=== PATIENT | male | born 1930 | race Caucasian/White ===

== ENCOUNTER 2016-09-27 04:26 | Inpatient (IN) | payer OTHER ==
[~2016-09-27] VITALS: Ht 182.9 cm; Wt 95.8 kg
[~2016-09-27 04:26] MED LIST: ACYCLOVIR800 MG PO; AMLODIPINE-BEN1 EACH PO; ANALGESIC325 M1 PO; ASPIR 8181 M1 PO; CILOSTAZOL100 MG PO; LIPITOR40 MG PO; LOTREL 10/21 CAPSULE PO; NITROSTAT,NITR0.4 M1 SL; PERCOCET 5/31 TABLET PO; PLAVIX75 MG PO; PLETAL100 M1 PO; RESUME HOME MEDS; VALIUM5 MG PO
[2016-09-27 05:02] LABS: BASOPHIL COUNT 0.1 K/uL (0-0.1); EOSINOPHIL (%) 0.8 % (0-5); EOSINOPHIL COUNT 0.1 K/uL (0-0.3); HEMATOCRIT 44.2 % (38.0-50.0); IMMATURE GRANULOCYTE (%) 0.3 % (0.0-0.7); INSTRUMENT ABS NEUTROPHIL CT 8.3 K/uL; LYMPHOCYTE COUNT 1.1 K/uL (1.0-2.8); MCH 25.7 PG (29.0-34.0); MCHC 31.4 G/DL (30.0-36.0); MCV 81.7 FL (86-99); MEAN PLAT.VOLUME 10.7 uM^3 (9.0-12.4); MONOCYTE (%) 4.7 % (3-12); MONOCYTE COUNT 0.5 K/uL (0-0.8); NEUTROPHIL (%) 82.4 % (45-76); NEUTROPHIL COUNT 8.3 K/uL (1.8-6.4); PLATELET COUNT 292 K/uL (156-360); RBC DIS.WIDTH-CV 15.5 % (11.8-14.6); RED BLOOD COUNT 5.41 M/uL (4.00-5.50)
[2016-09-27 05:18] LABS: CHLORIDE 103 mEq/L (99-109); POTASSIUM 4.2 mEq/L (3.7-5.4); SODIUM 140 mEq/L (136-147)
[2016-09-27 05:21] LABS: GLUCOSE 170 mg/dL (70-99)
[2016-09-27 05:22] LABS: ANION GAP 10 MEQ/L (2-14)
[2016-09-27 05:23] LABS: TOTAL BILIRUBIN 0.5 mg/dL (0.0-1.0)
[2016-09-27 05:24] LABS: ALKALINE PHOSPHATASE 106 IU/L (3-129); GFR ESTIMATE (CALCULATED) > 59 mL/min/; TROP-I INTERPRETATION NEGATIVE; TROPONIN-I < 0.01 ng/mL (0.0-0.30)
[2016-09-27 05:26] LABS: UREA NITROGEN (BUN) 16 mg/dL (9-23)
[2016-09-27 05:28] LABS: LIPASE 36 U/L (1.0-51.0)
[2016-09-27 09:30] LABS: ADD MIUA? NO; BILIRUBIN NEGATIVE; BLOOD NEGATIVE; COLOR STRAW ((YELLOW)); GLUCOSE (STRIP) NEGATIVE; KETONES NEGATIVE; LEUKOCYTES NEGATIVE; NITRITE NEGATIVE; PROTEIN (STRIP) NEGATIVE; SPECIFIC GRAVITY 1.027 (1.000-1.030); UCUL ADDED? NO; UROBILINOGEN 0.2 MG/DL (0.2-1.0)
[2016-09-27] MEDS ORDERED: AMLODIPINE BESY10 MG PO (11:30)
[2016-09-27] MEDS ORDERED: XARELTO20 MG PO (11:31)
[2016-09-27] MEDS ORDERED: ZESTRIL20 MG PO (11:33)
[2016-09-27 14:05] VITALS: BP 151/93
[2016-09-27 23:23] VITALS: BP 127/76
[2016-09-28 04:29] VITALS: BP 117/77
[2016-09-28 07:12] LABS: BASOPHIL COUNT 0.1 K/uL (0-0.1); EOSINOPHIL (%) 0.4 % (0-5); HEMATOCRIT 40.9 % (38.0-50.0); IMMATURE GRANULOCYTE (%) 0.4 % (0.0-0.7); INSTRUMENT ABS NEUTROPHIL CT 8.7 K/uL; LYMPHOCYTE COUNT 1.4 K/uL (1.0-2.8); MCH 25.8 PG (29.0-34.0); MCHC 31.3 G/DL (30.0-36.0); MCV 82.5 FL (86-99); MEAN PLAT.VOLUME 10.8 uM^3 (9.0-12.4); MONOCYTE (%) 6.8 % (3-12); MONOCYTE COUNT 0.7 K/uL (0-0.8); NEUTROPHIL COUNT 8.7 K/uL (1.8-6.4); PLATELET COUNT 271 K/uL (156-360); RBC DIS.WIDTH-CV 15.9 % (11.8-14.6); RBC DIS.WIDTH-SD 47.6 % (39-53); RED BLOOD COUNT 4.96 M/uL (4.00-5.50)
[2016-09-28 07:39] LABS: ANION GAP 6 MEQ/L (2-14); CHLORIDE 106 MEQ/L (99-109); GFR ESTIMATE (CALCULATED) > 59 mL/min/; SAMPLE HEMOLYSIS CHECK 1; SAMPLE ICTERIC CHECK 0; SAMPLE LIPEMIA CHECK 0; SODIUM 141 MEQ/L (136-147); UREA NITROGEN (BUN) 14 mg/dL (9-23)
[2016-09-28 07:40] LABS: GLUCOSE 109 mg/dL (70-99); POTASSIUM 4.2 MEQ/L (3.7-5.4)
[2016-09-28 08:31] VITALS: BP 122/74
[2016-09-28 16:20] VITALS: BP 117/77
[2016-09-28 19:39] VITALS: BP 125/67
[2016-09-28 23:00] VITALS: BP 111/70
[2016-09-29 03:11] VITALS: BP 118/71
[2016-09-29 06:54] VITALS: BP 109/66
[2016-09-29 07:02] LABS: BASOPHIL COUNT 0.1 K/uL (0-0.1); EOSINOPHIL (%) 1.3 % (0-5); EOSINOPHIL COUNT 0.1 K/uL (0-0.3); HEMATOCRIT 36.4 % (38.0-50.0); IMMATURE GRANULOCYTE (%) 0.3 % (0.0-0.7); INSTRUMENT ABS NEUTROPHIL CT 5.9 K/uL; LYMPHOCYTE COUNT 1.3 K/uL (1.0-2.8); MCH 25.6 PG (29.0-34.0); MCV 82.5 FL (86-99); MEAN PLAT.VOLUME 11.2 uM^3 (9.0-12.4); MONOCYTE (%) 8.2 % (3-12); MONOCYTE COUNT 0.7 K/uL (0-0.8); NEUTROPHIL (%) 73.3 % (45-76); NEUTROPHIL COUNT 5.9 K/uL (1.8-6.4); PLATELET COUNT 221 K/uL (156-360); RBC DIS.WIDTH-CV 15.9 % (11.8-14.6); RBC DIS.WIDTH-SD 48.1 % (39-53); RED BLOOD COUNT 4.41 M/uL (4.00-5.50)
[2016-09-29 15:42] VITALS: BP 119/72
[2016-09-29 19:03] VITALS: BP 138/81
[2016-09-29 23:00] VITALS: BP 134/81
[2016-09-30 03:56] VITALS: BP 119/57
[2016-09-30 07:10] VITALS: BP 110/69
== END 2016-09-30 14:41 | disposition home or self-care (01) | DRG 390 ==
LOC: EME 04:26 → 5EAST 07:50 → EME 07:50 → EDOF 07:50 → 5EAST 15:00
PROVIDERS: Emergency Medicine; Physician Assistant Surgical
DX: K56.5 Intestinal adhesions [bands] with obstruction (postinfection) (principal); I10 Essential (primary) hypertension; I25.10 Atherosclerotic heart disease of native coronary artery without angina pectoris; E78.5 Hyperlipidemia, unspecified; I73.9 Peripheral vascular disease, unspecified; Z95.5 Presence of coronary angioplasty implant and graft; Z95.828 Presence of other vascular implants and grafts; Z86.718 Personal history of other venous thrombosis and embolism; Z87.891 Personal history of nicotine dependence; Z79.82 Long term (current) use of aspirin; Z79.02 Long term (current) use of antithrombotics/antiplatelets
CPT/HCPCS: 71010; 74020; 74177; 80048; 80053; 81003; 83605; 83690; 84484; 85025; 93005; 99281; 99285; J1650; J2405; J3010; J7030; J7120

== ENCOUNTER 2018-02-02 17:04 | Emergency (ER) | payer OTHER ==
[~2018-02-02] VITALS: Ht 182.9 cm; Wt 97.1 kg
[~2018-02-02 17:04] MED LIST changes: +AMLODIPINE BESY10 MG PO; +XARELTO20 MG PO; +ZESTRIL20 MG PO
[2018-02-02 17:58] LABS: APPEARANCE CLEAR ((CLEAR)); BILIRUBIN NEGATIVE; BLOOD NEGATIVE; COLOR YELLOW ((YELLOW)); GLUCOSE (STRIP) NEGATIVE; KETONES NEGATIVE; LEUKOCYTES NEGATIVE; NITRITE NEGATIVE; PROTEIN (STRIP) NEGATIVE; SPECIFIC GRAVITY 1.013 (1.000-1.030); UCUL ADDED? NO; UROBILINOGEN 0.2 MG/DL (0.2-1.0)
[2018-02-02 18:04] LABS: HEMOGLOBIN 14.6 G/DL (12.5-16.6); MCH 31.4 PG (29.0-34.0); MCHC 34.8 G/DL (30.0-36.0); MCV 90.3 FL (86-99); PLATELET COUNT 235 K/uL (156-360); RBC DIS.WIDTH-CV 13.4 % (11.8-14.6); RED BLOOD COUNT 4.65 M/uL (4.00-5.50); WHITE BLOOD COUNT 12.4 K/uL (4.1-10.2)
[2018-02-02 18:17] LABS: CHLORIDE 106 mEq/L (99-109); SODIUM 140 mEq/L (136-147)
[2018-02-02 18:19] LABS: GLUCOSE 111 mg/dL (70-99); TOTAL PROTEIN 6.8 g/dL (6.4-8.3)
[2018-02-02 18:21] LABS: TOTAL BILIRUBIN 1.1 mg/dL (0.0-1.0)
[2018-02-02 18:22] LABS: ALKALINE PHOSPHATASE 95 IU/L (3-129)
[2018-02-02 18:23] LABS: GFR ESTIMATE (CALCULATED) > 59 mL/min/ (58.99-99999)
[2018-02-02 18:24] LABS: AST (GOT) 22 IU/L (2-34); UREA NITROGEN (BUN) 17 mg/dL (9-23)
[2018-02-02 18:25] LABS: ALT (GPT) 13 IU/L (3-49)
[2018-02-02 18:26] LABS: LIPASE 24 U/L (1.0-51.0)
[2018-02-02 23:05] LABS: TROP-I INTERPRETATION NEGATIVE; TROPONIN-I < 0.01 ng/mL (0.0-0.30)
[2018-02-02] MEDS ORDERED: CIPRO500 MG PO (23:22)
[2018-02-02] MEDS ORDERED: FLAGYL500 MG PO (23:22)
[2018-02-03 00:02] VITALS: BP 137/74
== END 2018-02-03 00:03 | disposition home or self-care (01) ==
LOC: EME 17:04
PROVIDERS: Emergency Medicine
PROC: 0T9B70Z Drainage of Bladder with Drainage Device, Via Natural or Artificial Opening (ICD-10-PCS; principal; 2018-02-02)
DX: K62.89 Other specified diseases of anus and rectum (principal); K56.41 Fecal impaction; R33.9 Retention of urine, unspecified; N28.1 Cyst of kidney, acquired; I10 Essential (primary) hypertension; E78.5 Hyperlipidemia, unspecified; Z95.5 Presence of coronary angioplasty implant and graft; Z86.718 Personal history of other venous thrombosis and embolism; Z79.01 Long term (current) use of anticoagulants; Z79.82 Long term (current) use of aspirin; Z87.891 Personal history of nicotine dependence
CPT/HCPCS: 74177; 80053; 81003; 83690; 84484; 85027; J7040

== ENCOUNTER 2018-02-04 12:57 | Emergency (ER) | payer OTHER ==
[~2018-02-04] VITALS: Ht 182.9 cm; Wt 95.8 kg
[~2018-02-04 12:57] MED LIST changes: +CIPRO500 MG PO; +FLAGYL500 MG PO
[2018-02-04 14:19] LABS: BASOPHIL COUNT 0.1 K/uL (0-0.1); EOSINOPHIL (%) 1.2 % (0-5); EOSINOPHIL COUNT 0.1 K/uL (0-0.3); HEMATOCRIT 45.1 % (38.0-50.0); HEMOGLOBIN 14.8 G/DL (12.5-16.6); IMMATURE GRANULOCYTE (%) 0.3 % (0.0-0.7); LYMPHOCYTE (%) 13.9 % (15-42); LYMPHOCYTE COUNT 1.3 K/uL (1.0-2.8); MCH 30.5 PG (29.0-34.0); MCHC 32.8 G/DL (30.0-36.0); MCV 92.8 FL (86-99); MONOCYTE (%) 9.6 % (3-12); MONOCYTE COUNT 0.9 K/uL (0-0.8); NEUTROPHIL COUNT 6.7 K/uL (1.8-6.4); PLATELET COUNT 235 K/uL (156-360); RBC DIS.WIDTH-CV 13.7 % (11.8-14.6); RBC DIS.WIDTH-SD 46.6 % (39-53); RED BLOOD COUNT 4.86 M/uL (4.00-5.50)
[2018-02-04 14:24] LABS: INTER. NORMALIZED RATIO 1.6
[2018-02-04 14:27] LABS: PTT 31.4 SEC (25-37)
[2018-02-04 14:31] LABS: CHLORIDE 109 mEq/L (99-109); POTASSIUM 4.3 mEq/L (3.7-5.4); SODIUM 140 mEq/L (136-147)
[2018-02-04 14:32] LABS: GLUCOSE 101 mg/dL (70-99)
[2018-02-04 14:36] LABS: CREATININE 1.4 mg/dL (0.6-1.3); GFR ESTIMATE (CALCULATED) 51 mL/min/ (58.99-99999)
[2018-02-04 14:37] LABS: UREA NITROGEN (BUN) 23 mg/dL (9-23)
[2018-02-04 16:38] LABS: APPEARANCE CLOUDY ((CLEAR)); BILIRUBIN NEGATIVE; BLOOD LARGE; COLOR RED ((YELLOW)); GLUCOSE (STRIP) NEGATIVE; KETONES NEGATIVE; LEUKOCYTES SMALL; NITRITE NEGATIVE; PROTEIN (STRIP) 100; SPECIFIC GRAVITY 1.027 (1.000-1.030); UROBILINOGEN 0.2 MG/DL (0.2-1.0)
[2018-02-04 16:51] LABS: RED BLOOD CELLS TNTC /HPF (0-5); UCUL ADDED? YES
[2018-02-04 20:10] VITALS: BP 135/80
== END 2018-02-04 20:10 | disposition home or self-care (01) ==
LOC: EME 12:57
PROVIDERS: Emergency Medicine
DX: R31.9 Hematuria, unspecified (principal); Z96.0 Presence of urogenital implants; R79.89 Other specified abnormal findings of blood chemistry; I10 Essential (primary) hypertension; E78.5 Hyperlipidemia, unspecified; I48.91 Unspecified atrial fibrillation; Z95.5 Presence of coronary angioplasty implant and graft; Z79.01 Long term (current) use of anticoagulants; Z79.82 Long term (current) use of aspirin; Z87.891 Personal history of nicotine dependence
CPT/HCPCS: 80048; 81003; 85025; 85610; 85730; 87086; 99281; 99284; J7030